=== PATIENT | female | born 2000 | race African-American/Black ===

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

== ENCOUNTER 2021-06-24 01:24 | Emergency (ER) | payer OTHER ==
[2021-06-24] MEDS ORDERED: TETANUS & DIPHTHERIA TOX,ADULT 0.5 ML VIAL ONE (01:48)
[2021-06-24] MEDS ORDERED: AMPICILLIN/SULBACT 1.5GM VIAL ONE ×2 (02:11→02:12)
[2021-06-24] MEDS ORDERED: NA CHLORIDE 0.9% 100 ML IV ONE (02:12)
[2021-06-24] MEDS ORDERED: LIDOCAINE 1% 20 ML MDV ONE (03:00)
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
[2021-06-24 03:53] VITALS: O2SAT 100
[2021-06-24 03:57] VITALS: BP 127/82; TEMP 98.3
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
== END 2021-06-24 03:45 | disposition home or self-care (01) ==
LOC: ER 01:24
PROC: 0JQK0ZZ Repair Left Hand Subcutaneous Tissue and Fascia, Open Approach (ICD-10-PCS; principal; 2021-06-24)
DX: S61.412A Laceration without foreign body of left hand, initial encounter (principal); Y04.1XXA Assault by human bite, initial encounter; Y92.009 Unspecified place in unspecified non-institutional (private) residence as the place of occurrence of the external cause; Z23 Encounter for immunization
CPT/HCPCS: 96365; 73130; 90471; 90714; 99284; 96366; 12002; J0295 ×2

== ENCOUNTER 2022-03-23 09:29 | Emergency (ER) | payer OTHER ==
[2022-03-23 12:21] LABS: Urine Blood 3+ (Negative); Urine Glucose Negative (Negative); Urine Protein 3+ (Negative); Urine Specific Gravity 1.025 (1.005-1.030); Urine pH 6.5 (5.0-7.0)
[2022-03-23 12:28] LABS: Urine Specific Gravity/Preg 1.025 (1.005-1.030)
[2022-03-23 12:44] LABS: Absolute Lymphocytes (CBC) 1.3 K/uL (0.7-4.9); Hematocrit 37.8 % (36.0-45.0); Lymphocytes % 15.8 % (15.3-44.8); MCV 79.6 fL (80-100); MPV 8.3 fL (7.6-11.3); RBC Red Blood Cell Count 4.75 M/uL (3.86-4.86)
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
[2022-03-23 13:08] LABS: Albumin 3.9 g/dL (3.4-5.0); Bilirubin Total 0.5 mg/dL (0.2-1.0); Potassium 3.5 mmol/L (3.5-5.1); Protein, Total 8.1 g/dL (6.4-8.2)
[2022-03-23 13:09] LABS: Transitional Epithelial <5 /HPF (None Seen); Urine Bacteria 20-50 /HPF (<20); Urine Mucus 2+ /HPF (None Seen); Urine RBC >50 /HPF (None Seen)
--- NOTE | 2022-03-23 13:21 | RAD REPORT ---
EXAM DESCRIPTION: CTAbdomen Pelvis W Contrast - 03/23/2022 1:08 pm CLINICAL HISTORY: Abdominal pain. upper/mid abd pain COMPARISON: No comparisons TECHNIQUE: Biphasic CT imaging of the abdomen and pelvis was performed with 100 ml non-ionic IV cont rast. All CT scans are performed using dose optimization technique as appropriate and may include automated exposure control or mA/KV adjustment according to patient size. FINDINGS: The lung bases are clear. The liver, spleen, pancreas, adrenal glands and kidneys are within normal limits. No bowel obstruction, free air, intra-abdominal free fluid or abscess. The appendix is normal. Mild ly prominent right lower quadrant and small bowel mesenteric lymph nodes. Mild pelvic free fluid. Enhancement of the urinary bladder wall is present. Mild enhancement of the right ureter also seen. No suspicious bony findings. IMPRESSION: Cystitis pattern is suspected with probable ascending urinary tract infection on the rig ht. Mild mesenteric adenitis also likely present.
--- NOTE | 2022-03-23 13:29 | EDPHYS ---
Physician Documentation [facility] Name: Tory Avendano Age: 21 yrs Sex: Female : 2000 Arrival Date: 03/23/2022 Time: 09:34 Bed 2 Private MD: ED Physician Sarwat Faith HPI: 03/23 09:51 This 21 yrs old Black Female presents to ER via Unassigned with complaints of Abdominal rn Pain. 09:51 The patient presents with abdominal pain in the epigastric area, in the upper abdomen. rn Onset: The symptoms/episode began/occurred this morning. The symptoms do not radiate. Associated signs and symptoms: Pertinent negatives: nausea and vomiting, blood in stools, chest pain, constipation, diarrhea, dysuria, fever, shortness of breath, vaginal discharge. The symptoms are described as achy, crampy. Modifying factors: The symptoms are alleviated by nothing, the symptoms are aggravated by touching the area. Severity of pain: At its worst the pain was mild in the emergency department the pain is unchanged. The patient has not experienced similar symptoms in the past. The patient has not recently seen a physician. 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 - Social history:: Smoking status: Patient denies any tobacco usage or history of. Patient/guardian denies using alcohol. - Family history:: not pertinent. - Hospitalizations: : No recent hospitalization is reported. ROS: 09:51 Constitutional: Negative for fever, chills, and weight loss, Eyes: Negative for injury, rn pain, redness, and discharge, Neck: Negative for injury, pain, and swelling, Cardiovascular: Negative for chest pain, palpitations, and edema, Respiratory: Negative for shortness of breath, cough, wheezing, and pleuritic chest pain, Abdomen/GI: + upper/mid abd pain Back: Negative for injury and pain, : Negative for injury, bleeding, discharge, and swelling, MS/Extremity: Negative for injury and deformity, Skin: Negative for injury, rash, and discoloration, Neuro: Negative for headache, weakness, numbness, tingling, and seizure. Exam: 09:51 Constitutional: This is a well developed, well nourished patient who is awake, alert, rn and in no acute distress. Head/Face: Normocephalic, atraumatic. Cardiovascular: Regular rate and rhythm. No pulse deficits. Respiratory: No increased work of breathing, no retractions or nasal flaring. Abdomen/GI: soft, + mild epigastric tenderness, no rebound, neg farias Back: No spinal tenderness. No costovertebral tenderness. Full range of motion. Skin: Warm, dry MS/ Extremity: Pulses equal, no cyanosis. Neuro: Awake and alert, GCS 15 Vital Signs: 10:43 BP 125 / 92; Pulse 77; Resp 18; Temp 97.9(O); Pulse Ox 100% on R/A; Weight 58.97 kg; ld1 Height 5 ft. 2 in. (157.48 cm); Pain 9/10; 12:45 BP 124 / 73; Pulse 64; Resp 17; Pulse Ox 100% ; tw2 13:56 BP 124 / 88; Pulse 67; Resp 18; Temp 97.6; Pulse Ox 99% on R/A; ph 10:43 Body Mass Index 23.78 (58.97 kg, 157.48 cm) ld1 MDM: 09:42 Patient medically screened. rn 13:28 Differential diagnosis: appendicitis, cholecystitis, Cholelithiasis, diverticulitis, rn non-specific abd pain, pancreatitis, Peptic Ulcer Disease, Ureterolithiasis, urinary tract infection. Data reviewed: vital signs, nurses notes, lab test result(s), radiologic studies, CT scan, and as a result, I will discharge patient. Counseling: I had a detailed discussion with the patient and/or guardian regarding: the historical points, exam findings, and any diagnostic results supporting the discharge/admit diagnosis, lab results, radiology results, the need for outpatient follow up, to return to the emergency department if symptoms worsen or persist or if there are any questions or concerns that arise at home. Special discussion: I discussed with the patient/guardian in detail that at this point there is no indication for admission to the hospital. It is understood, however, that if the symptoms persist or worsen the patient needs to return immediately for re-evaluation. 03/23 09:50 Order name: CBC with Diff; Complete Time: 13:28 rn 03/23 09:50 Order name: CMP; Complete Time: 13:28 rn 03/23 09:50 Order name: Lipase; Complete Time: 13:28 rn 03/23 12:22 Order name: Urine Dipstick-Ancillary; Complete Time: 13:28 EDMS 03/23 12:23 Order name: Urine --Ancillary (enter results); Complete Time: 13:28 bd 03/23 12:38 Order name: Urine Microscopic Only; Complete Time: 13:28 ss 03/23 09:50 Order name: Abdomen Limited US; Complete Time: 13:28 rn 03/23 09:50 Order name: CT Abd/Pelvis - IV Contrast Only; Complete Time: 13:28 rn 03/23 09:50 Order name: IV Saline Lock; Complete Time: 13:56 rn 03/23 09:50 Order name: Labs collected and sent; Complete Time: 13:56 rn 03/23 09:50 Order name: Urine Dipstick-Ancillary (obtain specimen); Complete Time: 12:25 rn 03/23 09:50 Order name: Urine Test (obtain specimen); Complete Time: 12:25 rn 03/23 12:38 Order name: Urine Culture ss Administered Medications: No medications were administered Disposition Summary: 03/23/22 13:29 Discharge Ordered Location: Home rn Problem: new rn Symptoms: have improved rn Condition: Stable rn Diagnosis - Acute cystitis without hematuria rn - UTI/ Urinary tract infection, site not specified rn Followup: rn - With: Private Physician - When: As needed - Reason: Recheck today's complaints, Re-evaluation by your physician Discharge Instructions: - Urinary Tract Infection, Adult rn - Discharge Summary Sheet tw2 Forms: - Medication Reconciliation Form rn - Thank You Letter rn - Antibiotic real estate internship - Work release form tw2 - Family Work Release tw2 - Prescription Opioid Use rn Prescriptions: - Cipro 500 mg Oral Tablet - take 1 tablet by ORAL route every 12 hours for 10 days; 20 tablet; Refills: 0, rn Product Selection Permitted Signatures: Dispatcher [employer] EDSarwat Johnson MD MD rn Barbara Morocho RN RN ld1
--- NOTE | 2022-03-23 13:29 | ER ---
Nurse's Notes [facility] Name: Tory Avendano Age: 21 yrs Sex: Female : 2000 Arrival Date: 03/23/2022 Time: 09:34 Bed 2 Private MD: Diagnosis: Acute cystitis without hematuria;UTI/ Urinary tract infection, site not specified Presentation: 03/23 10:43 Chief complaint: Patient states: Mid epigastric pain since this morning. Denies N/V/D. ld1 Coronavirus screen: At this time, the client does not indicate any symptoms associated with coronavirus-19. Ebola Screen: No symptoms or risks identified at this time. Initial Sepsis Screen: Does the patient meet any 2 criteria? No. Patient's initial sepsis screen is negative. Does the patient have a suspected source of infection? No. Patient's initial sepsis screen is negative. Risk Assessment: Do you want to hurt yourself or someone else? Patient reports no desire to harm self or others. Onset of symptoms was March 23, 2022. 10:43 Method Of Arrival: Ambulatory ld1 10:43 Acuity: HAYLIE 3 ld1 Triage Assessment: 10:44 General: Appears in no apparent distress. comfortable, Behavior is calm, cooperative, ld1 appropriate for age. Pain: Complains of pain in epigastric area Pain does not radiate. Pain currently is 9 out of 10 on a pain scale. Quality of pain is described as throbbing. EENT: No signs and/or symptoms were reported regarding the EENT system. Neuro: Level of Consciousness is awake, alert, obeys commands, Oriented to person, place, time, situation, Appropriate for age. Cardiovascular: Capillary refill < 3 seconds Patient's skin is warm and dry. Respiratory: Airway is patent Respiratory effort is even, unlabored. GI: Abdomen is flat, non-distended, Reports upper abdominal pain. : No signs and/or symptoms were reported regarding the genitourinary system. Derm: No signs and/or symptoms reported regarding the dermatologic system. Musculoskeletal: No signs and/or symptoms reported regarding the musculoskeletal system. 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 - Social history:: Smoking status: Patient denies any tobacco usage or history of. Patient/guardian denies using alcohol. - Family history:: not pertinent. - Hospitalizations: : No recent hospitalization is reported. Screenin:25 Abuse screen: Denies threats or abuse. Denies injuries from another. Nutritional ph screening: No deficits noted. Tuberculosis screening: No symptoms or risk factors identified. Fall Risk None identified. Assessment: 12:39 General: Appears in no apparent distress. comfortable, Behavior is calm, cooperative, ph appropriate for age, Denies fever, chills. Pain: Complains of pain in epigastric area and umbilical area. Neuro: Level of Consciousness is awake, alert, obeys commands, Oriented to person, place, time, situation. Cardiovascular: Capillary refill < 3 seconds in bilateral fingers. Respiratory: Airway is patent Respiratory effort is even, unlabored. GI: Abd is soft X 4 quads Reports upper abdominal pain, Patient currently denies nausea, vomiting. : No signs and/or symptoms were reported regarding the genitourinary system. Derm: Skin is healthy with good turgor, Skin is pink, warm \T\ dry. 13:56 Reassessment: Patient appears in no apparent distress at this time. Patient and/or ph family updated on plan of care and expected duration. Pain level reassessed. Patient is alert, oriented x 3, equal unlabored respirations, skin warm/dry/pink. Vital Signs: 10:43 BP 125 / 92; Pulse 77; Resp 18; Temp 97.9(O); Pulse Ox 100% on R/A; Weight 58.97 kg; ld1 Height 5 ft. 2 in. (157.48 cm); Pain 9/10; 12:45 BP 124 / 73; Pulse 64; Resp 17; Pulse Ox 100% ; tw2 13:56 BP 124 / 88; Pulse 67; Resp 18; Temp 97.6; Pulse Ox 99% on R/A; ph 10:43 Body Mass Index 23.78 (58.97 kg, 157.48 cm) ld1 ED Course: 09:34 Patient arrived in ED. iw 09:42 Sarwat Faith MD is Attending Physician. rn 10:04 Abdomen Limited US In Process Unspecified. EDMS 10:44 Triage completed. ld1 10:44 Arm band placed on right wrist. ld1 12:15 Ashley Paul, RN is Primary Nurse. ph 12:25 Patient has correct armband on for positive identification. Bed in low position. Call ph light in reach. Side rails up X 1. Pulse ox on. NIBP on. Door closed. Noise minimized. Warm blanket given. 12:39 Initial lab(s) drawn, by me, sent to lab. Urine collected: clean catch specimen, ph cloudy. Inserted saline lock: 22 gauge in left antecubital area, using aseptic technique. Blood collected. 13:10 CT Abd/Pelvis - IV Contrast Only In Process Unspecified. EDMS 13:56 No provider procedures requiring assistance completed. IV discontinued, intact, ph bleeding controlled, No redness/swelling at site. Pressure dressing applied. Administered Medications: No medications were administered Medication: 12:25 VIS not applicable for this client. ph Outcome: 13:29 Discharge ordered by . rn 13:57 Discharged to home ambulatory, with significant other. ph 13:57 Condition: good 13:57 Discharge instructions given to patient, Instructed on discharge instructions, follow up and referral plans. medication usage, Demonstrated understanding of instructions, follow-up care, medications, Prescriptions given X 1. 13:57 Patient left the ED. ph Signatures: Dispatcher [employer] Krsis Jenninsg, RN Sarwat Bassett MD MD rn Hall, Patricia RN Denisha Lui ph RN HOPE tw2 Barbara Morocho RN RN ld1
[2022-03-23 14:54] VITALS: BP 124/88; TEMP 97.6; O2SAT 99
== END 2022-03-23 13:57 | disposition home or self-care (01) ==
LOC: ER 09:29
DX: N30.00 Acute cystitis without hematuria (principal)
CPT/HCPCS: 87088; 85025; 87086; 36415; 81025; 87077; 87186; 83690; 80053; 74177; 76705; 99284; Q9967; 81003; 81015